=== PATIENT | female | born 1935 | race Caucasian/White ===

== ENCOUNTER 2018-04-15 13:15 | Inpatient (IN) | payer MEDICARE, OTHER ==
[~2018-04-15] VITALS: Ht 160 cm; Wt 54.0 kg
[~2018-04-15 13:15] MED LIST: ALBU8.5H8 IH; AMLO1CAP5 PO; FERR-48 PO; METO5TAB2 PO; PRAV20TA PO; SITA25 PO; TRAM50TA4 PO
[2018-04-15] MEDS ORDERED: GABA-529 PO (14:43)
[2018-04-15] MEDS ORDERED: FOLI1 PO (14:43)
[2018-04-15] MEDS ORDERED: DOCU250C91 PO (14:43)
[2018-04-15] MEDS ORDERED: MULT-412 PO (14:43)
[2018-04-15] MEDS ORDERED: ATOR40TA28 PO (14:43)
[2018-04-15] MEDS ORDERED: LEVO25TA9 PO (14:43)
[2018-04-15] MEDS ORDERED: PYRI100T2 PO (14:43)
[2018-04-15 16:56] LABS: BASOPHILS % (AUTO) 0.3 % (0.0-2.0); EOSINOPHILS % (AUTO) 0.3 % (1.0-6.0); HEMATOCRIT 26.7 % (36-46); HEMOGLOBIN 9.1 g/dL (12.0-16.0); LYMPHOCYTES # (AUTO) 0.8 K/uL (1.0-4.8); LYMPHOCYTES % (AUTO) 10.3 % (22.0-44.0); MEAN CORPUSCULAR HEMOGLOBIN 30.4 pg (26.0-34.0); MEAN CORPUSCULAR HGB CONC 33.9 G/dL (31.0-37.0); MEAN CORPUSCULAR VOLUME 90 fL (80-100); MONOCYTES # (AUTO) 0.6 K/uL (0.1-1.0); MONOCYTES % (AUTO) 8.3 % (2.0-9.0); NEUTROPHILS # (AUTO) 6.3 K/uL (1.8-7.7); NEUTROPHILS % (AUTO) 80.8 % (40.0-70.0); PLATELET COUNT (AUTO) 262 K/uL (150-450); RED BLOOD CELL COUNT(AUTO) 2.98 MIL/uL (4.00-5.20); RED CELL DISTRIBUTION WIDTH 13.7 % (11.5-14.5)
[2018-04-15] MEDS ORDERED: MORPHINE SULFATE 2 MG/ML SYRINGE IVP ONE (17:00)
[2018-04-15 17:08] LABS: ANION GAP 9 mmol/L (8-16); CARBON DIOXIDE 28 mmol/L (22-29); CHLORIDE 101 mmol/L (98-107); CREATININE 0.86 mg/dL (0.60-1.30); GLUCOSE,RANDOM 118 mg/dL (70-110); POTASSIUM 4.4 mmol/L (3.5-5.1); SODIUM SERUM 138 mmol/L (136-145); UREA NITROGEN, BLOOD 23 mg/dL (7-18)
[2018-04-15 17:09] LABS: GLOMERULAR FILTR. RATE CALC > 60 mL/min (>60)
[2018-04-15 17:11] LABS: INR 0.9 (0.9-1.1); PROTHROMBIN TIME 9.8 SEC (9.4-11.6)
[2018-04-15 17:15] LABS: ALANINE AMINOTRANSFERASE 21 U/L (12-78); ALBUMIN 3.3 g/dL (3.4-5.0); ALKALINE PHOSPHATASE 81 U/L (46-116); ASPARTATE AMINOTRANSFERASE 32 U/L (15-37); BILIRUBIN,TOTAL 0.5 mg/dL (0.1-1.0); TOTAL PROTEIN, SERUM 6.7 g/dL (6.4-8.2)
[2018-04-15] MEDS ORDERED: MORPHINE SULFATE 2 MG/ML SYRINGE IM ONE (18:00)
[2018-04-15] MEDS ORDERED: ONDANSETRON HCL 4 MG/2 ML VIAL IVP PRN ×2 (20:30→22:30)
[2018-04-15] MEDS ORDERED: 0.9% SODIUM CHLORIDE 10 ML SYRINGE IVP PRN (20:30)
[2018-04-15 20:44] VITALS: BP 154/68
[2018-04-15] MEDS ORDERED: IPRATROPIUM BROMIDE 0.5 MG/2.5 ML NEB SOLUTION NEB PRN (22:30)
[2018-04-15] MEDS ORDERED: ALBUTEROL SULFATE 2.5 MG/0.5 ML NEB SOLUTION NEB PRN (22:30)
[2018-04-15] MEDS ORDERED: ACETAMINOPHEN 325 MG TABLET PO PRN (22:30)
[2018-04-15] MEDS ORDERED: ZOLPIDEM TARTRATE 5 MG TABLET PO PRN (22:30)
[2018-04-15] MEDS ORDERED: MAGNESIUM HYDROXIDE SUSPENSION 30 ML UDCUP PO PRN (22:30)
[2018-04-15] MEDS ORDERED: HYDROCODONE/ACETAMINOPHEN 5-325 MG TABLET PO PRN (22:30)
[2018-04-15] MEDS ORDERED: BISACODYL 10 MG RECTAL RECTAL SUPPOSITORY PR PRN (22:30)
[2018-04-15] MEDS: HEPARIN SODIUM,PORCINE 5,000 UNITS/ML VIAL SQ SCH (23:08)
[2018-04-15] MEDS: ATORVASTATIN CALCIUM 40 MG TABLET PO SCH (23:08)
[2018-04-15 23:36] VITALS: BP 142/72
[2018-04-16] VITALS (11 sets, daily range): BP systolic 115–158; BP diastolic 47–83
[2018-04-16] MEDS: DEXTROSE 5%-0.45% SODIUM CHL 1,000 ML IV SCH ×2 (00:34→16:01)
[2018-04-16] MEDS: MORPHINE SULFATE 4 MG/ML SYRINGE IVP PRN ×5 (00:53→23:40)
[2018-04-16 06:02] LABS: BASOPHILS % (AUTO) 0.2 % (0.0-2.0); EOSINOPHILS % (AUTO) 0.8 % (1.0-6.0); HEMATOCRIT 23.5 % (36-46); HEMOGLOBIN 7.9 g/dL (12.0-16.0); LYMPHOCYTES # (AUTO) 1.2 K/uL (1.0-4.8); LYMPHOCYTES % (AUTO) 19.3 % (22.0-44.0); MEAN CORPUSCULAR HEMOGLOBIN 30.8 pg (26.0-34.0); MEAN CORPUSCULAR HGB CONC 33.7 G/dL (31.0-37.0); MEAN CORPUSCULAR VOLUME 91 fL (80-100); MONOCYTES # (AUTO) 0.7 K/uL (0.1-1.0); MONOCYTES % (AUTO) 10.9 % (2.0-9.0); NEUTROPHILS # (AUTO) 4.1 K/uL (1.8-7.7); NEUTROPHILS % (AUTO) 68.8 % (40.0-70.0); PLATELET COUNT (AUTO) 235 K/uL (150-450); RED BLOOD CELL COUNT(AUTO) 2.57 MIL/uL (4.00-5.20); RED CELL DISTRIBUTION WIDTH 13.7 % (11.5-14.5)
[2018-04-16] MEDS: LEVOTHYROXINE SODIUM 25 MCG TABLET PO SCH (06:20)
[2018-04-16 06:21] LABS: ALBUMIN 2.7 g/dL (3.4-5.0); BILIRUBIN,TOTAL 0.4 mg/dL (0.1-1.0); CALCIUM, TOTAL 8.4 mg/dL (8.8-10.5); CREATININE 1.1 mg/dL (0.60-1.30); POTASSIUM 4.6 mmol/L (3.5-5.1); TOTAL PROTEIN, SERUM 5.8 g/dL (6.4-8.2)
[2018-04-16] MEDS: DOCUSATE SODIUM 100 MG CAPSULE PO SCH ×2 (08:26→19:56)
[2018-04-16] MEDS: FOLIC ACID 1 MG TABLET PO SCH (08:26)
[2018-04-16] MEDS: FERROUS SULFATE 325 MG EC TABLET PO SCH (08:26)
[2018-04-16] MEDS: PYRIDOXINE HCL 50 MG TABLET PO SCH (08:26)
[2018-04-16] MEDS: MULTIVITAMINS WITH MINERALS, THERAPEUTIC TABLET PO SCH (08:26)
[2018-04-16] MEDS: SitaGLIPtin PHOSPHATE 25 MG TABLET PO SCH (08:26)
[2018-04-16] MEDS: PANTOPRAZOLE SODIUM 40 MG/VIAL IVP SCH (08:27)
[2018-04-16] MEDS: HEPARIN SODIUM,PORCINE 5,000 UNITS/ML VIAL SQ SCH ×3 (08:27→23:28)
[2018-04-16] MEDS ORDERED: [UNRECOGNIZED DRUG - OTHER] PO SCH (09:00)
[2018-04-16] MEDS ORDERED: DOCUSATE SODIUM 250 MG CAPSULE PO SCH (09:00)
[2018-04-16] MEDS ORDERED: SODIUM CHLORIDE 0.9% 500 ML IV ONE (15:54)
[2018-04-16] MEDS: AmLODIPine BESYLATE 5 MG TABLET PO SCH (16:01)
[2018-04-16] MEDS: BENAZEPRIL HCL 10 MG TABLET PO SCH (16:02)
[2018-04-16] MEDS: ATORVASTATIN CALCIUM 40 MG TABLET PO SCH (19:56)
[2018-04-16] MEDS: GABAPENTIN 100 MG CAPSULE PO SCH (19:56)
[2018-04-17 00:18] VITALS: BP 120/50
[2018-04-17 04:30] VITALS: BP 133/50
[2018-04-17] MEDS: MORPHINE SULFATE 4 MG/ML SYRINGE IVP PRN ×2 (05:49→16:06)
[2018-04-17] MEDS: LEVOTHYROXINE SODIUM 25 MCG TABLET PO SCH (05:59)
[2018-04-17] MEDS ORDERED: RINGERS SOLUTION,LACTATED 1,000 ML IV ONE ×2 (06:30→08:36)
[2018-04-17] MEDS ORDERED: PROPOFOL 1000 MG/ISO-OSM 100 ML IV ONE (06:48)
[2018-04-17] MEDS ORDERED: SODIUM CL IRRIG SOLN BAG 3,000 ML IRRIG ONE (07:00)
[2018-04-17] MEDS ORDERED: HYDROGEN PEROXIDE 473 ML SOLUTION ONE (07:00)
[2018-04-17 07:16] LABS: BASOPHILS % (AUTO) 0.2 % (0.0-2.0); EOSINOPHILS % (AUTO) 0.2 % (1.0-6.0); HEMATOCRIT 27.6 % (36-46); HEMOGLOBIN 9.3 g/dL (12.0-16.0); LYMPHOCYTES # (AUTO) 1.1 K/uL (1.0-4.8); MEAN CORPUSCULAR HEMOGLOBIN 30.3 pg (26.0-34.0); MEAN CORPUSCULAR HGB CONC 33.8 G/dL (31.0-37.0); MEAN CORPUSCULAR VOLUME 90 fL (80-100); MONOCYTES # (AUTO) 1.7 K/uL (0.1-1.0); MONOCYTES % (AUTO) 17.4 % (2.0-9.0); NEUTROPHILS # (AUTO) 6.9 K/uL (1.8-7.7); NEUTROPHILS % (AUTO) 71.2 % (40.0-70.0); PLATELET COUNT (AUTO) 227 K/uL (150-450); RED BLOOD CELL COUNT(AUTO) 3.08 MIL/uL (4.00-5.20); RED CELL DISTRIBUTION WIDTH 13.9 % (11.5-14.5)
[2018-04-17] MEDS ORDERED: BUPIVACAINE HCL/DEX-WATER/PF 0.75% 2 ML AMP ONE (07:16)
[2018-04-17] MEDS ORDERED: TRANEXAMIC ACID 1,000 MG in DEXTROSE 5%-WATER 50 ML IV ONE (07:45)
[2018-04-17] MEDS: FERROUS SULFATE 325 MG EC TABLET PO SCH (08:00)
[2018-04-17] MEDS ORDERED: BUPIVACAINE HCL/PF 0.25% 30 ML VIAL ONE (08:40)
[2018-04-17] MEDS ORDERED: BUPIVACAINE LIPOSOME/PF 1.3%-13.3MG/ML SUSPENSION 20 ML VIAL INJ ONE ×2 (08:45)
[2018-04-17 08:52] LABS: GLUCOMETER DEV NAME(LOC) 6N.2; GLUCOSE,POINT OF CARE 135 MG/DL (70-110)
[2018-04-17] MEDS: SitaGLIPtin PHOSPHATE 25 MG TABLET PO SCH (09:00)
[2018-04-17] MEDS: MULTIVITAMINS WITH MINERALS, THERAPEUTIC TABLET PO SCH (09:00)
[2018-04-17] MEDS: DOCUSATE SODIUM 100 MG CAPSULE PO SCH ×2 (09:00→19:52)
[2018-04-17] MEDS: PYRIDOXINE HCL 50 MG TABLET PO SCH (09:00)
[2018-04-17] MEDS: BENAZEPRIL HCL 10 MG TABLET PO SCH (09:00)
[2018-04-17] MEDS: FOLIC ACID 1 MG TABLET PO SCH (09:00)
[2018-04-17] MEDS: PANTOPRAZOLE SODIUM 40 MG/VIAL IVP SCH (09:00)
[2018-04-17] MEDS: AmLODIPine BESYLATE 5 MG TABLET PO SCH (09:00)
[2018-04-17 11:05] VITALS: BP 122/54
[2018-04-17] MEDS ORDERED: LIDOCAINE/PF 2% 5 ML VIAL INJ ONE (12:00)
[2018-04-17] MEDS ORDERED: KETAMINE HCL 50 MG/ML 10 ML VIAL IVP ONE (12:00)
[2018-04-17] MEDS ORDERED: FentaNYL CITRATE-PF 100 MCG/2 ML VIAL IVP ONE (12:00)
[2018-04-17] MEDS ORDERED: EPHEDrine SULFATE 50 MG/ML VIAL IM ONE (12:00)
[2018-04-17] MEDS ORDERED: PROPOFOL 1% 20 ML VIAL IVP ONE (12:00)
[2018-04-17] MEDS ORDERED: 0.9% SODIUM CHLORIDE 10 ML VIAL IVP ONE (12:00)
[2018-04-17] MEDS: DEXTROSE 5%-0.45% SODIUM CHL 1,000 ML IV SCH (12:18)
[2018-04-17 15:08] VITALS: BP 134/64
[2018-04-17] MEDS: CeFAZolin 1 GM/DEXTROSE 50 ML IV SCH ×2 (16:09→23:37)
[2018-04-17 18:47] VITALS: BP 137/80
[2018-04-17 19:40] VITALS: BP 130/79
[2018-04-17] MEDS: ATORVASTATIN CALCIUM 40 MG TABLET PO SCH (19:52)
[2018-04-17] MEDS: GABAPENTIN 100 MG CAPSULE PO SCH (19:52)
[2018-04-18 00:05] VITALS: BP 133/74
[2018-04-18] MEDS: MORPHINE SULFATE 4 MG/ML SYRINGE IVP PRN ×4 (03:15→19:57)
[2018-04-18] MEDS: DEXTROSE 5%-0.45% SODIUM CHL 1,000 ML IV SCH ×2 (03:16→19:36)
[2018-04-18 04:05] VITALS: BP 135/75
[2018-04-18] MEDS: LEVOTHYROXINE SODIUM 25 MCG TABLET PO SCH (06:13)
[2018-04-18 06:16] LABS: BASOPHILS % (AUTO) 0.1 % (0.0-2.0); EOSINOPHILS % (AUTO) 0.1 % (1.0-6.0); HEMATOCRIT 24.9 % (36-46); HEMOGLOBIN 8.4 g/dL (12.0-16.0); LYMPHOCYTES # (AUTO) 0.7 K/uL (1.0-4.8); MEAN CORPUSCULAR HEMOGLOBIN 30.4 pg (26.0-34.0); MEAN CORPUSCULAR HGB CONC 33.7 G/dL (31.0-37.0); MEAN CORPUSCULAR VOLUME 90 fL (80-100); MONOCYTES # (AUTO) 1.3 K/uL (0.1-1.0); MONOCYTES % (AUTO) 12.1 % (2.0-9.0); NEUTROPHILS # (AUTO) 8.5 K/uL (1.8-7.7); NEUTROPHILS % (AUTO) 80.7 % (40.0-70.0); PLATELET COUNT (AUTO) 210 K/uL (150-450); RED BLOOD CELL COUNT(AUTO) 2.76 MIL/uL (4.00-5.20); RED CELL DISTRIBUTION WIDTH 14.1 % (11.5-14.5)
[2018-04-18 06:38] LABS: ALBUMIN 2.1 g/dL (3.4-5.0); BILIRUBIN,TOTAL 0.4 mg/dL (0.1-1.0); CALCIUM, TOTAL 7.6 mg/dL (8.8-10.5); CREATININE 0.98 mg/dL (0.60-1.30); POTASSIUM 4.8 mmol/L (3.5-5.1); TOTAL PROTEIN, SERUM 4.8 g/dL (6.4-8.2)
[2018-04-18 07:45] VITALS: BP 118/56
[2018-04-18] MEDS: CeFAZolin 1 GM/DEXTROSE 50 ML IV SCH (08:37)
[2018-04-18] MEDS: FOLIC ACID 1 MG TABLET PO SCH (08:38)
[2018-04-18] MEDS: PANTOPRAZOLE SODIUM 40 MG/VIAL IVP SCH (08:38)
[2018-04-18] MEDS: ENOXAPARIN SODIUM 40 MG/0.4 ML PF SYRINGE SQ SCH (08:38)
[2018-04-18] MEDS: AmLODIPine BESYLATE 5 MG TABLET PO SCH (08:38)
[2018-04-18] MEDS: DOCUSATE SODIUM 100 MG CAPSULE PO SCH ×2 (08:38→19:55)
[2018-04-18] MEDS: FERROUS SULFATE 325 MG EC TABLET PO SCH (08:38)
[2018-04-18] MEDS: PYRIDOXINE HCL 50 MG TABLET PO SCH (08:38)
[2018-04-18] MEDS: BENAZEPRIL HCL 10 MG TABLET PO SCH (08:40)
[2018-04-18] MEDS: SitaGLIPtin PHOSPHATE 25 MG TABLET PO SCH (08:40)
[2018-04-18] MEDS: MULTIVITAMINS WITH MINERALS, THERAPEUTIC TABLET PO SCH (08:41)
[2018-04-18 11:02] VITALS: BP 119/56
[2018-04-18 15:27] VITALS: BP 128/70
[2018-04-18] MEDS ORDERED: PredniSONE 20 MG TABLET PO ONE (17:30)
[2018-04-18] MEDS ORDERED: OxyCODONE HCL 5 MG IR TABLET PO PRN (19:00)
[2018-04-18 19:50] VITALS: BP 125/60
[2018-04-18] MEDS: GABAPENTIN 100 MG CAPSULE PO SCH (19:57)
[2018-04-18] MEDS: ATORVASTATIN CALCIUM 40 MG TABLET PO SCH (19:57)
[2018-04-19 00:23] VITALS: BP 118/53
[2018-04-19 04:40] VITALS: BP 121/74
[2018-04-19] MEDS: LEVOTHYROXINE SODIUM 25 MCG TABLET PO SCH (06:18)
[2018-04-19 08:05] VITALS: BP 129/54
[2018-04-19] MEDS: PANTOPRAZOLE SODIUM 40 MG/VIAL IVP SCH (08:29)
[2018-04-19] MEDS: FERROUS SULFATE 325 MG EC TABLET PO SCH (08:30)
[2018-04-19] MEDS: MULTIVITAMINS WITH MINERALS, THERAPEUTIC TABLET PO SCH (08:30)
[2018-04-19] MEDS: ENOXAPARIN SODIUM 40 MG/0.4 ML PF SYRINGE SQ SCH (08:30)
[2018-04-19] MEDS: DOCUSATE SODIUM 100 MG CAPSULE PO SCH (08:30)
[2018-04-19] MEDS: AmLODIPine BESYLATE 5 MG TABLET PO SCH (08:30)
[2018-04-19] MEDS: SitaGLIPtin PHOSPHATE 25 MG TABLET PO SCH (08:30)
[2018-04-19] MEDS: BENAZEPRIL HCL 10 MG TABLET PO SCH (08:30)
[2018-04-19] MEDS: FOLIC ACID 1 MG TABLET PO SCH (08:30)
[2018-04-19] MEDS: PYRIDOXINE HCL 50 MG TABLET PO SCH (08:30)
[2018-04-19] MEDS ORDERED: PredniSONE 20 MG TABLET PO SCH (09:00)
[2018-04-19] MEDS: DEXTROSE 5%-0.45% SODIUM CHL 1,000 ML IV SCH (10:20)
[2018-04-19 10:48] LABS: GLUCOMETER DEV NAME(LOC) 6N.1; GLUCOSE,POINT OF CARE 146 MG/DL (70-110)
[2018-04-19 11:28] VITALS: BP 124/56
[2018-04-19 15:54] VITALS: BP 133/61
[2018-04-19] MEDS ORDERED: PRED20 PO (17:01)
[2018-04-19] MEDS ORDERED: ENOX40DI9 SQ (17:04)
== END 2018-04-19 18:10 | DRG 470 ==
LOC: EMS 13:16 → 6N 17:38
PROVIDERS: ADMIT Hospitalist; ATTEND Hospitalist
PROC: 30233N1 Transfusion of Nonautologous Red Blood Cells into Peripheral Vein, Percutaneous Approach (ICD-10-PCS; 2018-04-16)
PROC: 0SRS0J9 Replacement of Left Hip Joint, Femoral Surface with Synthetic Substitute, Cemented, Open Approach (ICD-10-PCS; principal; 2018-04-17 07:30)
DX: S72.002A Fracture of unspecified part of neck of left femur, initial encounter for closed fracture (principal); E44.1 Mild protein-calorie malnutrition; I25.10 Atherosclerotic heart disease of native coronary artery without angina pectoris; E78.00 Pure hypercholesterolemia, unspecified; M13.862 Other specified arthritis, left knee; D64.9 Anemia, unspecified; W01.0XXA Fall on same level from slipping, tripping and stumbling without subsequent striking against object, initial encounter; E03.9 Hypothyroidism, unspecified; E78.5 Hyperlipidemia, unspecified; E11.9 Type 2 diabetes mellitus without complications; Y93.89 Activity, other specified; Y92.091 Bathroom in other non-institutional residence as the place of occurrence of the external cause; Y99.8 Other external cause status; Z88.6 Allergy status to analgesic agent; Z79.84 Long term (current) use of oral hypoglycemic drugs; Z79.899 Other long term (current) drug therapy; Z95.1 Presence of aortocoronary bypass graft; Z90.5 Acquired absence of kidney; Z82.49 Family history of ischemic heart disease and other diseases of the circulatory system
CPT/HCPCS: 51702; 73503; 73552; 73700; 86850; 86900; 86901; 86920; 87081; 88300; 93005; 93306; 94761; 96372; 96374; 97162; 97530; C9113; C9290; G0238; G0378; J0690; J1644; J1650; J2270; J2704; J3010; J3490; J7040; J7060; J7120; P9016

== ENCOUNTER 2018-07-10 12:27 | Emergency (ER) | payer MEDICARE, OTHER ==
[~2018-07-10] VITALS: Ht 160 cm; Wt 61.4 kg
[~2018-07-10 12:27] MED LIST changes: +ATOR40TA28 PO; +DOCU250C91 PO; +ENOX40DI9 SQ; +FOLI1 PO; +GABA-529 PO; +LEVO25TA9 PO; -METO5TAB2 PO; +MULT-412 PO; -PRAV20TA PO; +PRED20 PO; +PYRI100T2 PO; -TRAM50TA4 PO
[2018-07-10] MEDS ORDERED: ASPI-556 PO (12:53)
[2018-07-10] MEDS ORDERED: PYRI50 PO (12:53)
[2018-07-10] MEDS ORDERED: FURO20 PO (12:53)
[2018-07-10 16:02] VITALS: BP 143/78
== END 2018-07-10 16:24 | disposition home or self-care (01) ==
LOC: EMS 12:36
DX: S00.83XA Contusion of other part of head, initial encounter (principal); E78.00 Pure hypercholesterolemia, unspecified; E11.9 Type 2 diabetes mellitus without complications; I25.10 Atherosclerotic heart disease of native coronary artery without angina pectoris; Z95.1 Presence of aortocoronary bypass graft; Z79.899 Other long term (current) drug therapy; Z88.6 Allergy status to analgesic agent; W01.0XXA Fall on same level from slipping, tripping and stumbling without subsequent striking against object, initial encounter; Y93.89 Activity, other specified; Y92.098 Other place in other non-institutional residence as the place of occurrence of the external cause; Y99.8 Other external cause status
CPT/HCPCS: 70450; 72125